=== PATIENT | male | born 1990 | race African-American/Black ===

== ENCOUNTER 2025-03-18 21:25 | Emergency (ER) | payer SELFPAY ==
[~2025-03-18] VITALS: Ht 177.8 cm; Wt 84.1 kg
[2025-03-18 21:35] VITALS: O2SAT 100
[2025-03-18 22:18] VITALS: BP 144/63; PULSE 64; RESP 16; TEMP 36.8
[2025-03-18] MEDS: TETANUS, DIPHTHERIA, PERTUSSIS VAC/PF 0.5ML (>10YR OLD) IM ONE (22:31)
[2025-03-18] MEDS: LIDOCAINE HCL/PF 1% 10 MG/ML 5ML VIAL INFIL ONE (22:34)
[2025-03-18] MEDS: ACETAMINOPHEN 325MG TABLET PO ONE (23:09)
[2025-03-19] MEDS ORDERED: AMOX1TAB16 MT (00:36)
[2025-03-19] MEDS ORDERED: T3 PO (00:36)
[2025-03-19] MEDS ORDERED: IBUP-2029 MT (00:36)
== END 2025-03-19 00:54 | disposition home or self-care (01) ==
LOC: ER 21:25
DX: S51.012A Laceration without foreign body of left elbow, initial encounter (principal); W54.0XXA Bitten by dog, initial encounter; Y93.89 Activity, other specified; Y92.89 Other specified places as the place of occurrence of the external cause; Y99.8 Other external cause status
CPT/HCPCS: 99284; 12032; 73080; 90715; 90471; J2003; 99283